=== PATIENT | female | born 1985 | race Hispanic/Latino ===

== ENCOUNTER 2018-04-13 13:22 | Outpatient (CLI) | payer OTHER ==
--- NOTE | 2018-04-13 16:24 | ULT ---
ULTRASOUND PELVIC TRANSVAGINAL WITH DOPPLER: 04/13/18 HISTORY: Menometrorrhagia. COMPARISON: None. FINDINGS: Real time avila scale color doppler and spectral analysis of the pelvis was performed with transabdom inal and transvaginal approach. Uterus is enlarged measuring 9.7 x 5.2 x 6 cm. There is heterogeneity of the echotexture of the myometrium. The junctional zone is not well defined. Endometrial thickness is 1.3 cm. Right ovary measures 3.5 x 2.8 x 2.6 and left ovary measures 2.9 x 2 x 1.2 cm. There is a right ovarian cyst measuring 1.9 cm. Multiple Nabothian cysts of the cervix. IMPRESSION: Enlarged, somewhat boggy appearance of the uterus with poorly defined anterior junctional zone may re flect adenomyosis. POS: IRIS
== END 2018-04-13 13:23 | disposition home or self-care (01) ==
LOC: ULT 13:22
PROVIDERS: ATTEND Family Medicine
DX: N92.1 Excessive and frequent menstruation with irregular cycle (principal)
CPT/HCPCS: 76856

== ENCOUNTER 2018-06-22 08:29 | Outpatient (CLI) | payer OTHER ==
[2018-06-22 14:54] LABS: Hemoglobin 12.7 g/dL (12.0-16.0); Mean Corpuscular HGB CONC 33.7 g/dL (32.0-36.0); Mean Corpuscular Hemoglobin 29.1 pg (27.0-31.0); Mean Corpuscular Volume 86.4 fL (78.0-98.0); Mean Platelet Volume 11.5 fL (7.4-10.4); Platelet Count 263 thou/uL (130-400); RBC Distribution Width 17.2 % (11.5-14.5); Red Blood Cell (RBC) Count 4.36 mill/uL (4.20-5.40); White Blood Cell (WBC) Count 5.6 thou/uL (4.8-10.8)
== END 2018-06-22 08:30 | disposition home or self-care (01) ==
LOC: LABBT 08:29
PROVIDERS: ATTEND Obstetrics & Gynecology
DX: Z01.812 Encounter for preprocedural laboratory examination (principal); N92.0 Excessive and frequent menstruation with regular cycle; D64.9 Anemia, unspecified
CPT/HCPCS: 85027

== ENCOUNTER 2018-06-29 07:37 | Observation (INO) | payer OTHER ==
[2018-06-22 14:43] VITALS: BMI 29.6
[2018-06-29] MEDS ORDERED: Midazolam HCl 2 mg/2 ml Vial ONE ×2 (08:18→08:41)
[2018-06-29] MEDS ORDERED: Fentanyl 250 MCG/5 ML VIAL ONE (08:41)
[2018-06-29] MEDS ORDERED: Lidocaine 2% Jelly 5 ML TUBE ONE (08:41)
[2018-06-29] MEDS ORDERED: Bupivacaine HCl 0.5%/Epinephrine 1:200,000/PF 30 ml Vial ONE (09:29)
[2018-06-29] MEDS ORDERED: Thrombin 5000 UNITS/5 ML VIAL ONE (09:35)
[2018-06-29] MEDS ORDERED: Calcium Chloride 1 GM/10 ML Abboject SYRINGE ONE (09:35)
[2018-06-29] MEDS ORDERED: Bisacodyl 10 MG SUPP PR PRN (13:03)
[2018-06-29] MEDS ORDERED: Morphine 4 MG/ML VIAL SLOW IVP PRN (13:03)
[2018-06-29] MEDS ORDERED: Ondansetron PF 4 MG/2 ML Vial IVP PRN (13:03)
[2018-06-29] MEDS ORDERED: Promethazine HCl 25 MG/ML VIAL IM PRN ×2 (13:03→13:05)
[2018-06-29] MEDS ORDERED: diphenhydrAMINE 25 MG CAP PO PRN (13:03)
[2018-06-29] MEDS ORDERED: Ondansetron HCl/PF 4 MG/2 ML Vial IVP PRN (13:05)
[2018-06-29] MEDS ORDERED: Promethazine HCl 25 MG/ML VIAL SLOW IVP PRN (13:05)
[2018-06-29] MEDS ORDERED: Fentanyl 100 MCG/2 ML VIAL ONE (13:25)
[2018-06-29] MEDS: Lactated Ringer's 1,000 ML IV SCH (14:53)
[2018-06-29] MEDS ORDERED: ePHEDrine 50 MG/ML VIAL ONE (16:36)
[2018-06-29] MEDS ORDERED: Dexamethasone 20 MG/5 ML VIAL ONE (16:36)
[2018-06-29] MEDS ORDERED: PHENYLEPHRINE-NS 100 MCG/ML 10 ML SYRINGE ONE (16:36)
[2018-06-29] MEDS ORDERED: Ondansetron PF 4 MG/2 ML Vial ONE (16:36)
[2018-06-29] MEDS ORDERED: Lidocaine 1% PF 5 ML VIAL ONE (16:36)
[2018-06-29] MEDS ORDERED: Glycopyrrolate 0.2 MG/ML 5 ML SYRINGE ONE (16:36)
[2018-06-29] MEDS ORDERED: Rocuronium Bromide 10 MG/ML (10ML VIAL) ONE (16:36)
[2018-06-29] MEDS ORDERED: PROPOFOL 200 MG/20 ML VIAL ONE (16:36)
[2018-06-29] MEDS: Ketorolac Tromethamine 30 MG/ML VIAL IVP SCH (18:25)
[2018-06-30] MEDS: Ketorolac Tromethamine 30 MG/ML VIAL IVP SCH ×3 (00:44→12:52)
[2018-06-30] MEDS: Lactated Ringer's 1,000 ML IV SCH ×2 (00:45→07:16)
[2018-06-30 08:27] VITALS: BP 99/57; TEMP 98.5
--- NOTE | 2018-07-02 09:28 | OP ---
DATE OF PROCEDURE: 06/29/2018 PREOPERATIVE DIAGNOSES: 1. 32-year-old female with history of menorrhagia. 2. Anemia. 3. Suspected adenomyosis. POSTOPERATIVE DIAGNOSES: 1. 32-year-old female with history of menorrhagia. 2. Anemia. 3. Suspected adenomyosis. 4. Confirmed adhesive disease. PROCEDURE PERFORMED: 1. Robotic total laparoscopic hysterectomy. 2. Bilateral salpingectomy. 3. Lysis of adhesions. 4. Plasmax infusion. SPECIMENS REMOVED: Uterus and tubes. ESTIMATED BLOOD LOSS: 20 mL. CLINICAL HISTORY: This patient is a 32-year-old female, multiparas, who had her tubal ligation after her last . She was referred back to me for concern of anemia secondary to chronic blood loss. The patient reports that she did not want to make a big fuss, but she had noted that her periods had been extremely heavy in the last few years with multiple clots seen during the time of her menses. She became symptomatic and her primary care physician did an analysis of her hemoglobin, which was noted to be significantly below the normal range. The patient was started on iron therapy and she was referred back to me for evaluation. Upon evaluation, the ultrasonography and physical exam findings were consistent with a dysfunctional uterine bleeding secondary to adenomyosis. The patient was advised for hysterectomy, and the risks, benefits, and possible complications as well as alternatives were discussed, and the patient wished to proceed. DESCRIPTION OF PROCEDURE: The patient was taken to the operating room where general anesthesia was obtained. She was laid in the supine position and her legs were placed in the [place] stirrups. She was prepped and draped in the usual sterile fashion. A weighted speculum was placed into the vagina and the cervix was grasped with a single-tooth tenaculum. The Clayton catheter was atraumatically placed with drainage of clear urine. A circumferential stay suture was placed to anchor the uterine manipulating device. Once this was placed, the weighted speculum and tenaculum were removed. The legs were placed in downward position, and the attention was turned to the abdomen where the abdomen was tented, and an incision was made in the umbilicus for the placement of the 5 mm trocar for direct visualization. Unfortunately, this did not result in visualization of the inner peritoneal cavity as the view was obstructed by omentum with several attempts through the umbilicus. The patient had a previous incision above the umbilicus and this was used to gain access into the peritoneum. Once the peritoneum was breached, it was noted that the umbilicus had some significant adhesions draping from the area. The bilateral operating port sites were placed under direct visualization and then the assistance port was placed with the use of a monopolar scissors enabled release of the omentum from the umbilicus on the anterior abdominal wall. Once these were taken down, the patient was docked with the patient in the steep Trendelenburg and the surgery continued as follows. Visualization of the right and left adnexa and the pathway of the ureters were performed. Once noting that the ureter was out of range of the intended dissecting structures, desiccation of the mesosalpinx beneath the fallopian tubes was performed toward the uterus allowing for dissection of the tubes. The IP and the round ligaments were taken down and the broad ligament was opened up to skeletonize the uterine arteries. Once this was performed, the bladder flap was created anteriorly and posteriorly of the broad ligament leaflet was reduced. The uterine vessels were then desiccated at the cervicovaginal junction, occluding the blood supply and allowing the ovarian pedicle to release out laterally away from the vaginal shelf being created. The attention was turned to the opposite side where in similar fashion, the right adnexal structures were identified. The ureter was relocated and noted to be away from the area of interest. The tube was dissected out towards the uterus. The IP and the round ligament were taken down and the uterine arteries were skeletonized. The bladder flap was connected in the front and drops the bladder further inferiorly. The uterine vessels were then desiccated and the cervicovaginal shelf was further delineated with careful dissection. The circumferential incision was then made around the cervix releasing the uterus and allowing this delivery through the vagina. Once the uterus was out of the abdomen and into the vagina, a full-thickness closure was performed with excellent hemostasis and re-peritonization of the pelvic cavity. Abdomen was copiously irrigated and the denuded areas from where the adhesions were released as well as the vaginal cuff and adnexal pedicles were covered in Plasmax, and the robot was undocked. The patient was taken out of steep Trendelenburg and the umbilicus and assistance port were closed with full thickness fascial closure, and tested by the surgeon's finger for integrity. The skin closure was then using a 4-0 Monocryl suture to close the skin at all port sites, and Steri-Strips and Mastisol were used over these closures just for reinforcement. Injection with local anesthetic was performed and Band-Aids were placed over these incisions. The patient tolerated the procedure well. The attention was then turned down to the vagina where the legs were elevated. The specimen was removed from the vagina in its entirety and the vagina was cleansed with irrigation fluid. She was de-draped and cleansed and then set to recover on the gurney and transported to the PACU. All needle, sponge, lap, and instrument counts were correct x2 at the end of the procedure. There were no other issues surrounding this procedure. Job ID: [id number]
== END 2018-06-30 13:18 | disposition home or self-care (01) ==
LOC: SDC 07:37 → 3SE 14:36
PROVIDERS: ADMIT Obstetrics & Gynecology; ATTEND Obstetrics & Gynecology
PROC: 0UT94ZZ Resection of Uterus, Percutaneous Endoscopic Approach (ICD-10-PCS; principal; 2018-06-29)
PROC: 0UT74ZZ Resection of Bilateral Fallopian Tubes, Percutaneous Endoscopic Approach (ICD-10-PCS; 2018-06-29)
DX: N84.0 Polyp of corpus uteri (principal); N92.0 Excessive and frequent menstruation with regular cycle; D50.0 Iron deficiency anemia secondary to blood loss (chronic); Z87.891 Personal history of nicotine dependence; Z98.84 Bariatric surgery status
CPT/HCPCS: 88307; 96361; 96374; 96375; 96376; G0378; J0670; J1100; J1885; J2001; J2250; J2270; J2405; J2704; J3010; J3490